=== PATIENT | female | born 1950 ===

== ENCOUNTER 2023-04-11 05:30 | Day surgery (SDC) | payer OTHER ==
[~2023-04-11] VITALS: Ht 152.4 cm; Wt 59.0 kg
[~2023-04-11 05:30] MED LIST: LISINOPRIL10 MG PO; SIMVAST PO
[2023-04-11] MEDS ORDERED: TRAM1TAB98 PO (09:20)
== END 2023-04-11 12:05 | disposition home or self-care (01) ==
LOC: CIR.AMB 05:30
PROVIDERS: ATTEND Surgery
DX: K64.2 Third degree hemorrhoids (principal); K62.89 Other specified diseases of anus and rectum; K62.5 Hemorrhage of anus and rectum; R15.9 Full incontinence of feces; Z20.822 Contact with and (suspected) exposure to COVID-19; Z88.2 Allergy status to sulfonamides; Z88.1 Allergy status to other antibiotic agents; E78.5 Hyperlipidemia, unspecified; I10 Essential (primary) hypertension